=== PATIENT | male | born 1950 ===

== ENCOUNTER → 2024-05-07 | Outpatient (CLI) | payer OTHER | LOC: LAB SHORT 12:27 → LAB 12:27 | DX: N39.0 Urinary tract infection, site not specified (principal) | CPT/HCPCS: 87086 ==

== ENCOUNTER → 2024-07-04 | Outpatient (CLI) | payer OTHER ==
[2024-07-04 09:51] LABS: Source, Urine Clean Catch
[2024-07-04 09:56] LABS: Bacteria Mod /hpf; Squamous Epithelial Cells Rare /hpf (Few); White Blood Cells, Urine Not Seen /hpf (0-5)
[2024-07-04 09:57] LABS: Calcium Oxalate Crystals Few /hpf
== END | disposition home or self-care (01) ==
LOC: LAB SHORT 09:49 → LAB 09:49
PROVIDERS: Physician Assistant Medical
DX: N48.89 Other specified disorders of penis (principal); N39.0 Urinary tract infection, site not specified
CPT/HCPCS: 81015; 87086

== ENCOUNTER → 2024-08-11 | Outpatient (CLI) | payer OTHER ==
[2024-08-11 10:06] LABS: Bacteria Not Seen /hpf; Red Blood Cells, Urine Not Seen /hpf (0-2); Source, Urine Clean Catch; Squamous Epithelial Cells Rare /hpf (Few); White Blood Cells, Urine Not Seen /hpf (0-5)
== END | disposition home or self-care (01) ==
LOC: LAB 09:54 → LAB SHORT 09:54
PROVIDERS: Emergency Medicine
DX: R30.0 Dysuria (principal)
CPT/HCPCS: 81015; 87086